=== PATIENT | female | born 2000 | race Caucasian/White ===

== ENCOUNTER 2022-07-20 10:24 | Outpatient (OUT) | payer OTHER, SELFPAY ==
[2022-07-20 10:48] VITALS: BP 127/64; PULSE 83
== END 2022-07-20 11:28 | disposition home or self-care (01) ==
LOC: FBCO 10:30 → FBC 10:36
PROVIDERS: PCP Family Medicine; Visit Provider Obstetrics & Gynecology
DX: O26.899 Other specified pregnancy related conditions, unspecified trimester (principal); R20.2 Paresthesia of skin; Z3A.00 Weeks of gestation of pregnancy not specified
CPT/HCPCS: 59025

== ENCOUNTER 2022-09-20 10:45 | Observation (INO) | payer OTHER, SELFPAY ==
[2022-09-20 10:56] VITALS: BP 113/64; PULSE 81
[2022-09-20 10:57] VITALS: TEMP 35.4
[2022-09-20 11:11] VITALS: BP 116/71; PULSE 70
[2022-09-20 11:26] VITALS: BP 123/77; PULSE 67
[2022-09-20 11:41] VITALS: BP 121/77; PULSE 75
[2022-09-20 11:50] LABS: Basophils Percent Auto 0.3 % (0.2-2.0); Eosinophils Absolute Auto 0.1 10^3/uL (0.0-0.7); Eosinophils Percent Auto 0.8 % (0.9-7.0); Hemoglobin 12.4 g/dL (12.0-16.0); Immature Granulocytes Abs Auto 0.02 10^3/uL (0.00-0.03); Immature Granulocytes Pct Auto 0.3 % (0.0-0.5); Lymphocytes Absolute Auto 2.1 10^3/uL (1.2-3.8); Lymphocytes Percent Auto 28.8 % (20.5-60.0); Mean Corpuscular HGB Conc 32.6 g/dL (29.9-35.2); Mean Corpuscular Hemoglobin 25.3 pg (26.7-34.0); Mean Corpuscular Volume 77.6 fL (81.0-99.0); Mean Platelet Volume 10.5 fL (9.5-13.5); Monocytes Absolute Auto 0.3 10^3/uL (0.3-0.8); Monocytes Percent Auto 4.3 % (1.7-12.0); Neutrophils Absolute Auto 4.7 10^3/uL (1.4-6.5); Neutrophils Percent Auto 65.5 % (43.0-75.0); Platelet Count 221 10^3/uL (150-450); Red Cell Distribution Width 13.6 % (11.0-15.0); White Blood Count 7.2 10^3/uL (4.0-11.0)
[2022-09-20 11:54] LABS: Creatinine Urine Random 45.44 mg/dL (20.00-300.00); Protein Creatinine Ratio Urine 0.13; Total Protein Urine Random <6.0 mg/dL (<=11.9)
[2022-09-20 11:59] LABS: Bilirubin Urine NEGATIVE (NEGATIVE); Blood Urine NEGATIVE (NEGATIVE); Clarity Urine CLEAR (CLEAR); Color Urine LT. YELLOW (YELLOW); Glucose Urine UA NEGATIVE (NEGATIVE); Ketones Urine NEGATIVE (NEGATIVE); Leukocyte Esterase Urine TRACE (NEGATIVE); Nitrite Urine NEGATIVE (NEGATIVE); Protein Urine NEGATIVE (NEG/TRACE); Specific Gravity Urine <=1.005 (1.005-1.025); Urobilinogen Urine 0.2 EU/dL (0.2-1.0)
[2022-09-20 12:02] LABS: Urine Microscopic Indicated YES
[2022-09-20 12:09] LABS: Alanine Aminotransferase 74 U/L (14-59); Albumin Level 2.1 g/dL (3.4-5.0); Alkaline Phosphatase 126 U/L (46-116); Anion Gap 13.8; Aspartate Amino Transferase 35 U/L (15-37); Bilirubin Total 0.6 mg/dL (0.2-1.0); Calcium 8.6 mg/dL (8.5-10.1); Carbon Dioxide 23.6 mmol/L (21.0-32.0); Chloride 102 mmol/L (98-107); Estimated GFR (African America >60 (>=60); Estimated GFR (Non-African Ame >60 (>=60); Glucose 113 mg/dL (74-106); Lactate Dehydrogenase 121 U/L (81-234); Potassium 3.4 mmol/L (3.5-5.1); Sodium 136 mmol/L (136-145); Total Protein 6.1 g/dL (6.4-8.2); Uric Acid 3.2 mg/dL (2.6-6.0)
[2022-09-20 12:10] LABS: Albumin Globulin Ratio 0.5
[2022-09-20 12:11] LABS: INR 0.93; Partial Thromboplastin Time 28.2 sec (22.3-36.2); Prothrombin Time 9.9 sec (9.0-11.6)
[2022-09-20 12:14] LABS: WBC Urine 0-2 #/HPF (NONE SEEN)
[2022-09-20 12:15] LABS: Bacteria Urine TRACE #/HPF (NONE SEEN); Cast Seen? NONE SEEN #/LPF (NONE SEEN); Crystals Seen? None Seen #/HPF (None Seen); Mucus Urine NONE SEEN (NONE SEEN); RBC Urine 0-2 #/HPF (0-2); Squamous Epithelial Cell Urine FEW #/LPF (NONE/RARE); Urine Culture Indicated NO
[2022-09-20 12:16] LABS: BUN Creatinine Ratio 6.3
== END 2022-09-20 12:40 | disposition home or self-care (01) ==
LOC: FBC 11:25
PROVIDERS: Admitting Provider Obstetrics & Gynecology; PCP Family Medicine; Visit Provider Obstetrics & Gynecology
DX: O16.3 Unspecified maternal hypertension, third trimester (principal); O26.893 Other specified pregnancy related conditions, third trimester; R51.9 Headache, unspecified; R42 Dizziness and giddiness; Z3A.33 33 weeks gestation of pregnancy
CPT/HCPCS: 36415; 59025; 80053; 81001; 82570; 83615; 84156; 84550; 85025; 85610; 85730; G0378; G0379

== ENCOUNTER 2022-09-30 17:35 | Observation (INO) | payer OTHER, SELFPAY ==
[2022-09-30] VITALS (20 sets, daily range): BP systolic 105–140; BP diastolic 67–84; PULSE 69–99; RESP 18; TEMP 36.8
[2022-09-30 18:16] LABS: Bilirubin Urine NEGATIVE (NEGATIVE); Blood Urine TRACE-I (NEGATIVE); Clarity Urine CLEAR (CLEAR); Color Urine LT. YELLOW (YELLOW); Glucose Urine UA NEGATIVE (NEGATIVE); Ketones Urine NEGATIVE (NEGATIVE); Leukocyte Esterase Urine TRACE (NEGATIVE); Nitrite Urine NEGATIVE (NEGATIVE); Protein Urine NEGATIVE (NEG/TRACE); Specific Gravity Urine <=1.005 (1.005-1.025); Urobilinogen Urine 0.2 EU/dL (0.2-1.0); pH Urine 5.5 (5.0-9.0)
[2022-09-30 18:18] LABS: Urine Microscopic Indicated YES
[2022-09-30] MEDS: 0.9 % SODIUM CHLORIDE 1,000 ML 125 ML IV (18:18)
[2022-09-30] MEDS: TERBUTALINE SULFATE 1 MG/ML VIAL 0.25 MG SUBQ ×2 (18:21→18:53)
[2022-09-30 18:31] LABS: Bacteria Urine TRACE #/HPF (NONE SEEN); Cast Seen? NONE SEEN #/LPF (NONE SEEN); Crystals Seen? None Seen #/HPF (None Seen); Mucus Urine NONE SEEN (NONE SEEN); Squamous Epithelial Cell Urine FEW #/LPF (NONE/RARE); Urine Culture Indicated YES
--- NOTE | 2022-09-30 19:35 | W.PC.ACHO ---
Registration Status: ADM CHRISTINA Primary Language: Preferred Language: Active Medications Generic Name Dose Route Start Last Admin Trade Name Freq PRN Reason Stop Dose Admin Sodium Chloride 1,000 mls @ 125 mls/hr 09/30/22 17:45 09/30/22 18:18 Sodium Chloride 0.9% 1,000 Ml IV 125 mls/hr .Q8H CONY Administration Terbutaline Sulfate 0.25 mg 09/30/22 17:45 09/30/22 18:53 Terbutaline Sulfate 1 Mg/Ml Vial SUBQ 09/30/22 20:16 0.25 mg Q30M CONY Administration IV Insertion/Site Date of IV Line Insertion [ 09/30/22 Short PIV (<1.75 in) right Hand] IV Insertion Time [Short PIV ( 18:05 <1.75 in) right Hand]
== END 2022-09-30 22:02 | disposition home or self-care (01) ==
PROVIDERS: Admitting Provider Midwife; PCP Family Medicine; Visit Provider Midwife
DX: O47.9 False labor, unspecified (principal); Z3A.00 Weeks of gestation of pregnancy not specified
CPT/HCPCS: 59025; 81001; 87086; 96372; G0378; G0379

== ENCOUNTER 2022-10-06 18:41 | Observation (INO) | payer OTHER, SELFPAY ==
[2022-10-06 18:42] VITALS: BP 139/79; PULSE 77
[2022-10-06 19:59] LABS: Bilirubin Urine NEGATIVE (NEGATIVE); Blood Urine NEGATIVE (NEGATIVE); Clarity Urine CLEAR (CLEAR); Color Urine LT. YELLOW (YELLOW); Glucose Urine UA NEGATIVE (NEGATIVE); Ketones Urine NEGATIVE (NEGATIVE); Leukocyte Esterase Urine SMALL (NEGATIVE); Nitrite Urine NEGATIVE (NEGATIVE); Protein Urine NEGATIVE (NEG/TRACE); Specific Gravity Urine 1.015 (1.005-1.025); Urobilinogen Urine 0.2 EU/dL (0.2-1.0)
[2022-10-06] MEDS: LACTATED RINGER'S SOLUTION 1,000 ML 125 ML IV (20:28)
[2022-10-06 20:29] LABS: Urine Microscopic Indicated YES
[2022-10-06 20:31] LABS: Bacteria Urine TRACE #/HPF (NONE SEEN); Mucus Urine NONE SEEN (NONE SEEN); RBC Urine 0-2 #/HPF (0-2)
[2022-10-06 20:32] LABS: Cast Seen? NONE SEEN #/LPF (NONE SEEN); Crystals Seen? None Seen #/HPF (None Seen); Squamous Epithelial Cell Urine MODERATE #/LPF (NONE/RARE); Urine Culture Indicated YES
[2022-10-06 21:07] VITALS: BP 130/76
[2022-10-06] MEDS: NIFEdipine 10 MG CAPSULE PO (21:07)
[2022-10-06 21:09] VITALS: BP 130/76; PULSE 74; RESP 16
[2022-10-06] MEDS: ACETAMINOPHEN 500 MG TABLET 1000 MG PO (21:09)
[2022-10-07] MEDS: BETAMETHASONE ACE/BETAMETHASONE SOD PHOS 30 MG/5 ML 12 MG IM (00:15)
[2022-10-07] MEDS: LACTATED RINGER'S SOLUTION 1,000 ML 1000 ML IV (00:16)
[2022-10-07 01:02] VITALS: BP 119/82
[2022-10-07] MEDS: NIFEdipine 10 MG CAPSULE PO ×3 (01:02→08:41)
[2022-10-07 01:03] VITALS: BP 119/82; PULSE 72
[2022-10-07 05:14] VITALS: BP 110/69
[2022-10-07 05:15] VITALS: BP 110/69; PULSE 64
[2022-10-07 07:27] VITALS: BP 110/71; PULSE 74
[2022-10-07] MEDS: SERTRALINE HCL 50 MG TABLET PO (08:39)
[2022-10-07] MEDS: LEVOTHYROXINE SODIUM 75 MCG TABLET 150 MCG PO (08:39)
--- NOTE | 2022-10-07 08:59 | PM.EN ---
Event Note Event Note: patient arrived yesterday after falling while holding her baby. She did not know what she hit or how she landed as she was upset and worried about falling with the baby. She came to the hospital and was treated for contractions and 4 hour NST. Doing well today, SVE unchanged from yesterday to today at fingertip. Assessment negative. LS clear x4, Heart rate NSR, abdomen gravid and soft. category I FHR tracing, patient denies contraction pain and abdominal tightening. She states she wants to go home. Rx for Procardia 10 mg 1 po q6hrs and continue routine meds. PVU and she will return tonight at 10:00 pm for her second dose of Celestone.
== END 2022-10-07 09:25 | disposition home or self-care (01) ==
LOC: FBCO 10-07 08:48 → FBC 10-07 08:49
PROVIDERS: Admitting Provider Midwife; PCP Family Medicine; Visit Provider Midwife
DX: O60.03 Preterm labor without delivery, third trimester (principal); Z3A.35 35 weeks gestation of pregnancy; Z91.81 History of falling
CPT/HCPCS: 59025; 81001; 87086; 96372; G0378; G0379; J0702

== ENCOUNTER 2022-10-07 09:54 | Outpatient (OUT) | payer OTHER, SELFPAY ==
[2022-10-07] MEDS: BETAMETHASONE ACE/BETAMETHASONE SOD PHOS 30 MG/5 ML 12 MG IM (22:25)
== END 2022-10-07 22:30 | disposition home or self-care (01) ==
PROVIDERS: PCP Family Medicine; Visit Provider Midwife
DX: O60.00 Preterm labor without delivery, unspecified trimester (principal); Z3A.00 Weeks of gestation of pregnancy not specified
CPT/HCPCS: 96372; J0702

== ENCOUNTER 2022-10-23 18:20 | Inpatient (IN) | payer OTHER, SELFPAY ==
[2022-10-23] VITALS (34 sets, daily range): BP systolic 107–163; BP diastolic 66–105; PULSE 61–88; RESP 16–18; TEMP 35.9–36.7
[2022-10-23] MEDS: 0.9 % SODIUM CHLORIDE 1,000 ML 125 ML IV (19:17)
[2022-10-23 19:18] LABS: Hematocrit 39.3 % (36.0-48.0); Hemoglobin 13.1 g/dL (12.0-16.0); Mean Corpuscular HGB Conc 33.3 g/dL (29.9-35.2); Mean Platelet Volume 11.3 fL (9.5-13.5); Platelet Count 245 10^3/uL (150-450); Red Blood Count 5.04 10^6/uL (4.20-5.40); Red Cell Distribution Width 14.3 % (11.0-15.0); White Blood Count 9.3 10^3/uL (4.0-11.0)
[2022-10-23] MEDS: 0.9 % SODIUM CHLORIDE 1,000 ML 1000 ML IV (20:10)
[2022-10-23 20:26] LABS: Amphetamine Screen Urine NEGATIVE (NEGATIVE); Barbiturates Screen Urine NEGATIVE (NEGATIVE); Benzodiazepines Screen Urine NEGATIVE (NEGATIVE); Buprenorphine Screen Urine NEGATIVE (NEGATIVE); Cannabinoid Screen Urine NEGATIVE (NEGATIVE); Cocaine Screen Urine NEGATIVE (NEGATIVE); Methadone Screen Urine NEGATIVE (NEGATIVE); Methamphetamines Screen Urine NEGATIVE (NEGATIVE); Opiate Screen Urine NEGATIVE (NEGATIVE); Oxycodone Screen Urine NEGATIVE (NEGATIVE); Phencyclidine Screen Urine NEGATIVE (NEGATIVE); Tricyclic Antidepressant Urine NEGATIVE (NEGATIVE)
[2022-10-23] MEDS: ROPIVACAINE HCL/PF 400 MG/200 ML PREMIX 6 MG EPIDURAL (20:38)
[2022-10-23 20:39] LABS: Bilirubin Urine NEGATIVE (NEGATIVE); Blood Urine NEGATIVE (NEGATIVE); Clarity Urine CLEAR (CLEAR); Color Urine LT. YELLOW (YELLOW); Glucose Urine UA NEGATIVE (NEGATIVE); Ketones Urine NEGATIVE (NEGATIVE); Leukocyte Esterase Urine MODERATE (NEGATIVE); Nitrite Urine NEGATIVE (NEGATIVE); Protein Urine NEGATIVE (NEG/TRACE); Urobilinogen Urine 0.2 EU/dL (0.2-1.0)
[2022-10-23] MEDS: FENTANYL CITRATE/PF 100 MCG/2 ML VIAL EPIDURAL ×2 (20:39)
[2022-10-23 21:08] LABS: Urine Microscopic Indicated YES
[2022-10-23 21:27] LABS: Squamous Epithelial Cell Urine MODERATE #/LPF (NONE/RARE)
[2022-10-23 21:29] LABS: Crystals Seen? None Seen #/HPF (None Seen)
[2022-10-23 21:31] LABS: Bacteria Urine NONE SEEN #/HPF (NONE SEEN); Cast Seen? NONE SEEN #/LPF (NONE SEEN); Mucus Urine NONE SEEN (NONE SEEN); RBC Urine 0-2 #/HPF (0-2)
--- NOTE | 2022-10-23 23:34 | P.OBHP_ITS ---
OB - H&P: HPI History of Present Illness Chief complaint: Cramping, Rule out Labor : 2 Para: 1 Gestational age based on last menstrual period: 36 w History of Present Dating criteria: LMP confirmed by 1st trimester US care: good care Ultrasounds: normal 1st trimester US and normal mid trimester US complications: labor complications comment: hypothyroid Medical complications OB: none Labs Blood type: A (-) negative Rubella: immune RPR/VDLR: nonreactive GBS status: negative HBsAG: negative PFSH PFSH Medical History (Updated 10/23/22 @ 23:41 by HYACINTH CABRERA APRN, DERICK) Surgical History (Updated 07/20/22 @ 10:56 by Buffy White, JOJO) Social History (Updated 07/20/22 @ 10:58 by Buffy White, JOJO) Smoking status: Never smoker Non-prescribed substance use: denies use Meds Home Medications and Allergies Home Medications Medication Instructions Recorded Confirmed Type levothyroxine 150 mcg capsule 150 mcg PO DAILY 07/20/22 10/23/22 History ondansetron HCl 4 mg tablet 4 mg PO TID-QID PRN nausea and 07/20/22 10/23/22 History vomiting prenat.vits,milka,dyy-odec-nrxrl 1 tab PO DAILY 07/20/22 10/23/22 History sertraline 50 mg tablet (Zoloft) 50 mg PO DAILY 07/20/22 10/23/22 History Allergies Allergy/AdvReac Type Severity Reaction Status Date / Time Penicillins Allergy Severe Hives Verified 07/20/22 10:52 vancomycin Allergy Severe kidney Verified 07/20/22 10:52 failure loratadine [From Claritin] Allergy Intermediate Hives Verified 07/20/22 10:52 Exam Constitutional Vital Signs, click to edit/add: Last Vital Signs Temp 96.8 F L 10/23/22 20:26 Pulse 75 10/23/22 23:29 Resp 18 10/23/22 19:31 BP 130/70 10/23/22 23:29 Documenting provider has reviewed patient's vital signs: yes Common normals: no apparent distress General appearance: cooperative and comfortable Orientation/consciousness: Yes awake, Yes oriented to person, Yes oriented to place and Yes oriented to time HENMT Common normals: normocephalic Neck & C-Spine Common normals: full ROM and no JVD Lymph Lymphatic: no lymphadenopathy noted Chest Common normals: inspection of chest normal Respiratory Common normals: normal respiratory effort and clear to auscultation bilaterally Effort & inspection: able to speak in complete sentences Cardio Common normals: regular rate, regular rhythm and no murmurs Rate: regular rate Rhythm: regular rhythm GI Common normals: Normal to inspection, nondistended, normoactive bowel sounds present Inspection: normal to inspection Auscultation: normoactive bowel sounds Palpation: soft Common normals: no CVA tenderness Back & Pelvis Common normals: no CVA tenderness Extremity Common normals: normal to inspection Neuro Common normals: oriented x3 Sensorium/orientation: awake, alert, oriented to person, oriented to place and oriented to time Speech: speech normal Psych Common normals: mental status grossly normal Attitude: calm Activity/motor behavior: appropriate eye contact Thought process: normal thought process Results Labs Labs: Short CBC 10/23/22 Range/Units 19:00 WBC 9.3 (4.0-11.0) 10^3/uL Hgb 13.1 (12.0-16.0) g/dL Hct 39.3 (36.0-48.0) % Plt Count 245 (150-450) 10^3/uL Urine 10/23/22 Range/Units 19:00 Urine Color Lt. yellow (YELLOW) Urine Clarity Clear (CLEAR) Urine pH 7.0 (5.0-9.0) Ur Specific [place] 1.010 (1.005-1.025) Urine Protein Negative (NEG/TRACE) mg/dL Urine Glucose (UA) Negative (NEGATIVE) mg/dL OB - A/P Assessment and Plan (1) Term :
[2022-10-23] MEDS: OXYTOCIN/0.9 % SODIUM CHLORIDE 20 UNITS/1,000 ML PLAST..BAG 125 UNIT IV (23:41)
[2022-10-23] MEDS: LIDOCAINE HCL 1% 200 MG/20 ML MDV INJ (23:41)
--- NOTE | 2022-10-23 23:42 | PM.OBPRCVD ---
Procedure Procedure: events: Labor Augmentation Intrapartal events: None Induction method: none Delivery augmentation: rupture of membranes and pitocin Delivery monitor: external FHT and external uterine Route of delivery: Episiotomy Description: none Laceration description: perineal - 2nd degree Delivery repair: Vicryl Estimated blood loss (mL): 200 Anesthesia type: Epidural Disposition: no change Complications: epidural not effective for pain relief Delivery date: 10/23/22 Gender: male presentation: vertex Placental delivery description: Spontaneous cord description: 3 Vessels heart rate - 1 minute: 100 bpm or Greater respiratory effort - 1 minute: Spontaneous/Strong Cry muscle tone - 1 minute: Minimal Flexion/Extension reflex response - 1 minute: Minimal Response color - 1 minute: Bluish Hands or Feet total score - 1 minute: 7 heart rate - 5 minute: 100 bpm or Greater respiratory effort - 5 minute: Spontaneous/Strong Cry muscle tone - 5 minute: Active Movement reflex response - 5 minute: Minimal Response color - 5 minute: Bluish Hands or Feet total score - 5 minute: 8
[2022-10-24] VITALS (15 sets, daily range): BP systolic 98–127; BP diastolic 56–75; PULSE 62–73; RESP 16; TEMP 35.8–37.3
[2022-10-24] MEDS: GLYCERIN/WITCH HAZEL PADS 1 PAD TOPICAL (00:16)
[2022-10-24] MEDS: IBUPROFEN 400 MG TABLET 800 MG PO ×2 (00:17→09:58)
--- NOTE | 2022-10-24 08:45 | PM.OBPN ---
OB - PN: Subj Subjective Patient comments: no complaints and pain well controlled Faber status: doing well Exam Constitutional Vital Signs, click to edit/add: Last Vital Signs Temp 96.4 F L 10/24/22 04:05 Pulse 65 10/24/22 04:05 Resp 16 10/24/22 03:55 BP 116/68 10/24/22 04:05 O2 Del Method Room Air 10/24/22 03:55 Documenting provider has reviewed patient's vital signs: yes Common normals: no apparent distress Respiratory Common normals: normal respiratory effort and clear to auscultation bilaterally Cardio Common normals: regular rate and regular rhythm GI Common normals: Normal to inspection, nondistended, normoactive bowel sounds present Extremity Common normals: no calf tenderness Results Labs Labs: Short CBC 10/23/22 Range/Units 19:00 WBC 9.3 (4.0-11.0) 10^3/uL Hgb 13.1 (12.0-16.0) g/dL Hct 39.3 (36.0-48.0) % Plt Count 245 (150-450) 10^3/uL Urine 10/23/22 Range/Units 19:00 Urine Color Lt. yellow (YELLOW) Urine Clarity Clear (CLEAR) Urine pH 7.0 (5.0-9.0) Ur Specific [place] 1.010 (1.005-1.025) Urine Protein Negative (NEG/TRACE) mg/dL Urine Glucose (UA) Negative (NEGATIVE) mg/dL OB - PN: A/P Assessment and Plan (1) Term : Plan - Vaginal Delivery day: 1 Plan: routine care, discharge home and other (on friday10/28/22 with megan emanuel) Time Spent with Patient Time: Total time spent is greater than 50% in coordination of care (as documented) at patient's floor/unit and/or counseling patient: Total time spent with greater than 50% in coordination of care (as documented) at patient's floor/unit and/or counseling patient: 25 - 35 minutes
[2022-10-24] MEDS: RHO(D) IMMUNE GLOBULIN 1,500 UNIT SYRINGE 1500 UNIT IM (11:18)
== END 2022-10-24 11:30 | disposition home or self-care (01) | DRG 560 ==
LOC: FBCO 18:30 → FBC 18:30
PROVIDERS: Admitting Provider Midwife; PCP Family Medicine; Visit Provider Midwife
DX: O99.284 Endocrine, nutritional and metabolic diseases complicating childbirth (principal); O70.1 Second degree perineal laceration during delivery; Z3A.38 38 weeks gestation of pregnancy; E03.1 Congenital hypothyroidism without goiter; Z37.0 Single live birth; Z79.890 Hormone replacement therapy; Z79.899 Other long term (current) drug therapy; Z88.0 Allergy status to penicillin; Z88.1 Allergy status to other antibiotic agents; Z88.8 Allergy status to other drugs, medicaments and biological substances
CPT/HCPCS: 36415; 59050; 59410; 80307; 81001; 85027; 85461; 86900; 86901; 96372; 96374; J2790

== ENCOUNTER 2024-10-22 18:31 | Emergency (ER) | payer OTHER, SELFPAY ==
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
[2024-10-22 18:41] VITALS: BP 138/74; PULSE 62; TEMP 37; O2SAT 100; BMI 49.9
--- OUTSIDE RECORDS SUMMARY | 2024-10-22 19:26 | XMS_ITS | Encounter Summary ---
Author Organization [facility] Address [address] [place] [address] Care Team Providers Care Plug Drill Operator Name Role Phone Viji Vogt MD Primary Care Provider [phone] Rena Borges AUTOMOTIVE MACHINIST Unavailable [phone] Bree Bryant RN Unavailable [phone] Geneva Abdi INDUSTRIAL DESIGN ENGINEER Unavailable Viji Vogt MD Unavailable Mariann Loving AUTOMOTIVE MACHINIST Unavailable Thalia-Glory Acosta WATERWORKS CHIEF ENGINEER-NAPPER RUNNER Unavailable Viji Vogt MD Unavailable Encounter Details Date Type Department Care Team (Late st Contact Info) Description 08/22/2022 Abstract AHMETRaulito Jaimes OBFÁTIMAN [address] [place] [address] Elena Gonzalez, MILAM [address] [place], [place] [id number] Social History Tobacco Use Types Packs/Day Years Used Date Smoking Tobacco: Never Smokeless Tobacco: Never Alcohol Use Standard Drinks/Week Comments Never 0 (1 standard drink = 0.6 oz pur e alcohol) caffeine: pop 2 cans/day Comments Yes Sex and Gender Information Value Date Recorded Sex Assigned at Female 06/19/2022 12:13 PM EDT Legal Sex Female 6:48 PM EDT Gender Identity Female 06/19/2022 12:13 PM EDT Sexual Orientation Straight 06/19/2022 12 :13 PM EDT Occupation Industry 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 Date 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 No / Unsure 08/14/2022 10:38 PM EDT documented as of this encounter Plan of Treatment Upcoming Encounters Date Type Department Care Team (Late st Contact Info) Description 11/16/2024 11:30 AM EDT Office Visit [facility] [place] [facility] 112 [facility] [address] [place] [address] Glory Mccormick, WATERWORKS CHIEF ENGINEER-NAPPER RUNNER 112 [facility] [address] [place] [address] documented as of this encounter Visit Diagnoses Not on filedocumented in this encounter Care Teams Plug Drill Operator Relationship Specialty Start Date End Date Viji Vogt MD [address] [place] [address] PCP - General Family Medicine 07/12/22 Rena Borges NP [address] [place] [address] PCP - [facility] 08/10/22 Viji Vogt MD [address] [place] [address] PCP - [facility] 05/12/23 Mariann Loving NP PCP - [facility] 11/11/2302/09 Viji Vogt MD [address] [place] [address] PCP - [facility] 02/11/24 Bree Bryant, RN [address] [place] [address] Registered Nurse Family Medicine 01/29/23 01/29/23 Geneva Abdi, DEE [address] [place] [address] Graining Press Operator Family Medicine 01/29/23 02/05/23 Glory Mccormick, WATERWORKS CHIEF ENGINEER-NAPPER RUNNER [address] [facility] [address] [place] [address] Nurse Practitioner Psychiatry 02/27/24 documented as of this encounter
--- OUTSIDE RECORDS SUMMARY | 2024-10-22 19:26 | XMS_ITS | Encounter Summary ---
Author Organization [facility] Address [address] [place] [address] Care Team Providers Care Anchor Tacker Name Role Phone Viji Vogt MD Primary Care Provider [phone] Glory Mccormick BRAN MIXER-ALUMINUM HYDROXIDE PROCESS OPERATOR Unavailable Viji Vogt MD Unavailable Encounter Details Date Type Department Care Team (Late st Contact Info) Description 10/22/2024 Bamboo flowsheet [facility] Family Medicine [address] [place] [address] Sasha Frye NP [address] [place] [address] Social History Tobacco Use Types Packs/Day Years [...] week 11/07/2023 How often do you attend [facility] or rastafari services? More than 4 times per year 11/07/2023 Do you belong to any clubs o r organizations such as sikh groups, unions, fraternal or athletic groups, or [...] Recorded Patient Health Questionnaire-2 Score 1 04/27/2024 [facility] - Occupational [...] things needed for daily living? No 11/07/2023 [place] Depression Scale Answer Date Recorded [place] Depression Scale Total 20 01/29/2023 The thought [...] any time in the past 12 m ont, were you homeless or living in a intermediate (including now)? No 11/07/2023 Education Answer Date [...] on file documented as of this encounter Plan of Treatment Upcoming Encounters Date Type Department Care Team (Late st Contact Info) Description 11/16/2024 11:30 AM EDT Office Visit [facility] [place] [facility] [address] [facility] [address] [place] [address] Glory Mccormick, BRAN MIXER-ALUMINUM HYDROXIDE PROCESS OPERATOR [address] [facility] [address] [place] [address] documented as of this encounter Visit Diagnoses Not on filedocumented in this encounter Additional Health Concerns Assessment Noted Time PHQ-9 Depression Total Score: 13 04/27/ 025 3:28 PM EDT documented as of this encounter Care Teams Anchor Tacker Relationship Specialty Start Date End Date Viji Vogt MD [address] [place] [address] PCP - General Family Medicine 07/12/22 Viji Vogt MD [address] [place] [address] PCP - [facility] 02/11/24 Glory Mccormick, BRAN MIXER-ALUMINUM HYDROXIDE PROCESS OPERATOR [address] [place] [address] [place] [address] Nurse Practitioner Psychiatry 02/27/24 documented as of this encounter
--- OUTSIDE RECORDS SUMMARY | 2024-10-22 19:26 | XMS_ITS | Encounter Summary ---
Author Organization [facility] Address [address] [place] [address] Care Team Providers Care Bi Architect Name Role Phone Viji Vogt MD Primary Care Provider [phone] Glory Mccormick FERTILIZER SUPERVISOR-MICROPHONE BOOM OPERATOR Unavailable Viji Vogt MD Unavailable Encounter Details Date Type Department Care Team (Latest Contact Info) Description 10/22/2024 Travel Social History Tobacco Use Types Packs/Day Years [...] week 11/07/2023 How often do you attend chur ch or jewish services? More than 4 times per year 11/07/2023 Do you belong to any clubs o r organizations such as scientology groups, unions, fraternal or athletic groups, or [...] Recorded Patient Health Questionnaire-2 Score 1 04/27/2024 [facility] - Occupational Stress [...] things needed for daily living? No 11/07/2023 Avon Depression Scale Answer Date Recorded [place] Depression Scale Total 20 01/29/2023 The thought [...] [facility] the [facility] were you homeless or living in a fci (including now)? No 11/07/2023 Education Answer Date [...] 11/16/2024 11:30 AM EDT Office Visit [facility] 112 [facility] 160 [place] [address] Glory Mccormick APRN-MICROPHONE BOOM OPERATOR 112 [facility] 160 [place] [address] documented as of this encounter Visit Diagnoses Not on filedocumented in this encounter Additional Health Concerns Assessment Noted Time PHQ-9 Depression Total Score: 13 04/27/ 025 3:28 PM EDT documented as of this encounter Care Teams Bi Architect Relationship Specialty Start Date End Date Viji Vogt MD [address] [place] [address] PCP - General Family Medicine 07/12/22 Viji Vogt MD [address] [place] [address] PCP - [facility] 02/11/24 Glory Mccormick APRN-MICROPHONE BOOM OPERATOR 112 [facility] 160 [place] [address] Nurse Practitioner Psychiatry 02/27/24 documented as of this encounter
--- OUTSIDE RECORDS SUMMARY | 2024-10-22 19:26 | XMS_ITS | Encounter Summary ---
Author Organization [facility] Address [address] [place] [address] Care Team Providers Care Insulation Extruder Operator Name Role Phone Viji Vogt MD Primary Care Provider [phone] Rena Borges SENIOR INTERACTION DESIGNER Unavailable [phone] Bree Bryant RN Unavailable [phone] Geneva Abdi SHIPPING/RECEIVING CLERK Unavailable Viji Vogt MD Unavailable Mariann Loving SENIOR INTERACTION DESIGNER Unavailable Thalia-Glory Acosta GRAPHIC ARTS TECHNICIAN-INSPECTOR HANDBAG FRAMES Unavailable Viji Vogt MD Unavailable Encounter Details Date Type Department Care Team (Late st Contact Info) Description 07/19/2022 Abstract [facility] [address] [place] [address] Elena Gonzalez, DERICK [address] [place], [place] [address] Social History Tobacco Use Types Packs/Day Years Used Date Smoking Tobacco: Never Assessed Comments Yes Sex and Gender Information Value Date Recorded Sex Assigned at Female 06/19/2022 12:13 PM EDT Legal Sex Female 6:48 PM EDT Gender Identity Female 06/19/2022 12:13 PM EDT Sexual Orientation Straight 06/19/2022 12 :13 PM EDT documented as of this encounter Plan of Treatment Upcoming Encounters Date Type Department Care Team (Late st Contact Info) Description 11/16/2024 11:30 AM EDT Office Visit [facility] 112 [facility] 160 [place] [address] Glory Mccormick, GRAPHIC ARTS TECHNICIAN-INSPECTOR HANDBAG FRAMES 112 [facility] 160 [place] [address] documented as of this encounter Visit Diagnoses Not on filedocumented in this encounter Care Teams Insulation Extruder Operator Relationship Specialty Start Date End Date Viji Vogt MD 14[address] [facility] [place] [address] PCP - General Family Medicine 07/12/22 Rena Borges, SENIOR INTERACTION DESIGNER [address] [place] [address] PCP - [facility] 08/10/22 Viji Vogt MD [address] [place] [address] PCP - [facility] 05/12/23 Mariann Loving NP PCP - [facility] 11/11/2302/09 Viji Vogt MD [address] [place] [address] PCP - [facility] 02/11/24 Bree Bryant, JOJO [address] [facility] [place] [address] Registered Nurse Family Medicine 01/29/23 01/29/23 Geneva Abdi, SHIPPING/RECEIVING CLERK [address] [place] [address] Firearms Specialist Family Medicine 01/29/23 02/05/23 Glory Mccormick, GRAPHIC ARTS TECHNICIAN-INSPECTOR HANDBAG FRAMES 112 [place] [address] Nurse Practitioner Psychiatry 02/27/24 documented as of this encounter
--- OUTSIDE RECORDS SUMMARY | 2024-10-22 19:26 | XMS_ITS | Encounter Summary ---
Author Organization [facility] Address [address] [place] [address] Care Team Providers Care Onsite Health Coach Name Role Phone Viji Vogt MD Primary Care Provider [phone] Rena Borges ESTHETICIAN/OWNER Unavailable [phone] Bree Bryant RN Unavailable [phone] Geneva Abdi J2EE APPLICATION DEVELOPER Unavailable Viji Vogt MD Unavailable Mariann Loving ESTHETICIAN/OWNER Unavailable Thalia-Glory Acosta SUPERVISOR INSPECTION DEPARTMENT-MARKETING ASSISTANT MANAGER Unavailable Viji Vogt MD Unavailable Encounter Details Date Type Department Care Team (Late st Contact Info) Description 09/10/2022 [facility] Medicine [address] [place] [address] Viji Vogt MD [address] [place] [address] Social History Tobacco Use Types [...] Industry 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 No / Unsure 09/11/2022 1:45 PM EDT documented as of this encounter Plan of Treatment Upcoming Encounters Date Type Department Care Team (Late st Contact Info) Description 11/16/2024 11:30 AM EDT [facility] Visit [facility] 112 [facility] 160 [place] [address] Glory Mccormick, SUPERVISOR INSPECTION DEPARTMENT-MARKETING ASSISTANT MANAGER 112 [facility] 160 [place] [address] documented as of this encounter Visit Diagnoses Not on filedocumented in this encounter Care Teams Onsite Health Coach Relationship Specialty Start Date End Date Viji Vogt MD [address] [place] [address] PCP - General Family Medicine 07/12/22 Rena Borges NP [facility] [place] [address] PCP - [facility] 08/10/22 Viji Vogt MD [address] [place] [address] PCP - [facility] 05/12/23 Mariann Loving NP PCP - [facility] 11/11/2302/09 Viji Vogt MD [address] [place], [place] [address] PCP - [facility] 02/11/24 Bree Bryant, RN [address] [place], [place] [address] Registered Nurse Family Medicine 01/29/23 01/29/23 Geneva Abdi, DEE [address] [place] [address] Surgical Device Sales Representative Family Medicine 01/29/23 02/05/23 Glory Mccormick, SUPERVISOR INSPECTION DEPARTMENT-MARKETING ASSISTANT MANAGER 112 [facility] 160 [place] [address] Nurse Practitioner Psychiatry 02/27/24 documented as of this encounter
--- OUTSIDE RECORDS SUMMARY | 2024-10-22 19:26 | XMS_ITS | Encounter Summary ---
Author Organization [facility] Address [address] [place] [address] Care Team Providers Care Conveyor Belt Repairer Name Role Phone Viji Vogt MD Primary Care Provider [phone] Rena Borges WATERFRONT DIRECTOR Unavailable [phone] Bree Bryant RN Unavailable [phone] Geneva Abdi HEALTH TECHNICIAN HEARING Unavailable Viji Vogt MD Unavailable Mariann Loving WATERFRONT DIRECTOR Unavailable Thalia-Glory Acosta DOCUMENTATION ANALYST-FEATHER BONER Unavailable Viji Vogt MD Unavailable Reason for Visit * Reason Comments Med Refill Encounter Details Date Type Department Care Team (Late st Contact Info) Description 09/12/2022 Refill [facility] Family Medicine [address] [place] [address] Viji Vogt MD [address] [place], [place] [address] Other specified hypothyroidism (Primary Dx) Social History Tobacco Use Types [...] Industry 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 No / Unsure 09/11/2022 1:45 PM EDT documented as of this encounter Miscellaneous Notes * Telephone Encounter - Viji Vogt MD - 09/12/2022 10:29 AM EDT Approvals with refills documented in this encounter Plan of Treatment Upcoming Encounters Date Type Department Care Team (Late st Contact Info) Description 11/16/2024 11:30 AM EDT Office Visit [facility] 112 [facility] 160 [place] [address] Glory Mccormick APRN-FEATHER BONER 112 [facility] 160 [place] [address] documented as of this encounter Visit Diagnoses Diagnosis Other specified hypothyroidism- Primary documented in this encounter Care Teams Conveyor Belt Repairer Relationship Specialty Start Date End Date Viji Vogt MD [address] [place] [address] PCP - General Family Medicine 07/12/22 Rena Borges NP [address] [place] [address] [facility]CP - [facility] 08/10/22 Viji Vogt MD [address] [place] [address] PCP - [facility] 05/12/23 Mariann Loving WATERFRONT DIRECTOR PCP - [facility] 11/11/2302/09 Viji Vogt MD [address] [place], [place] [address] PCP - [facility] 02/11/24 Bree Bryant, JOJO [address] [facility] [place], [place] [id number] Registered Nurse Family Medicine 01/29/23 01/29/23 Geneva Abdi, HEALTH TECHNICIAN HEARING [address] [place] [address] Family Services Manager Family Medicine 01/29/23 02/05/23 Glory Mccormick, DOCUMENTATION ANALYST-FEATHER BONER [address] [id number] Nurse Practitioner Psychiatry 02/27/24 documented as of this encounter
--- OUTSIDE RECORDS SUMMARY | 2024-10-22 19:26 | XMS_ITS | Encounter Summary ---
Author Organization [facility] Address [address] [place] [address] Care Team Providers Care Bag Sorter Name Role Phone Viji Vogt MD Primary Care Provider [phone] Glory Mccormick APRN-LANDSCAPE TECHNICIAN Unavailable Viji Vogt MD Unavailable Encounter Details Date Type Department Care Team (Late st Contact Info) Description 10/22/2024 Telephone [facility] [place] [facility] [address] [place] [address] Viji Vogt MD [address] [place] [address] Social History Tobacco Use Types [...] week 11/07/2023 How often do you attend [facility] or congregation services? More than 4 times per year 11/07/2023 Do you belong to any clubs o r organizations such as moravian groups, unions, fraternal or athletic groups, or [...] Recorded Patient Health Questionnaire-2 Score 1 04/27/2024 [facility] - Occupational Stress Questionnaire Answer Date Recorded [...] things needed for daily living? No 11/07/2023 [place] Depression Scale Answer Date Recorded [place] Depression Scale Total 20 01/29/2023 The thought [...] were you homeless or living in a halfway (including now)? No 11/07/2023 Education Answer Date [...] on file documented as of this encounter Miscellaneous Notes * Telephone Encounter - Zonia Bautista MA - 10/22/2024 3:51 PM EDT Left a detailed message to get that at the ER since no pharmacies carry this. * Telephone Encounter - Fariba King - 10/22/2024 2:53 PM EDT Hi, this is the [facility] pharmacy in [place]. We received a prescription for Etta De La Cruz data 1 for the hyper rab babies immune globulin. It looks like something that she is going to want to receive at the hospital, just give us a call back if that is so or send it to the right office. If it was wrongly sent to us. Our number is [phone]. Thank you. documented in this encounter Plan of Treatment Upcoming Encounters Date Type Department Care Team (Late st Contact Info) Description 11/16/2024 11:30 AM EDT Office Visit [facility] [address] [facility] 160 [place] [address] Glory Mccormick, ENGINE WIPER-LANDSCAPE TECHNICIAN [address] [facility] 160 [place] [address] documented as of this encounter Visit Diagnoses Not on filedocumented in this encounter Additional Health Concerns Assessment Noted Time PHQ-9 Depression Total Score: 13 025 3:28 PM EDT documented as of this encounter Care Teams Bag Sorter Relationship Specialty Start Date End Date Viji Vogt MD [address] [place], [place] [address] PCP - General Family Medicine 07/12/22 Viji Vogt MD [address] [place] [address] PCP - [facility] 02/11/24 Glory Mccormick, ENGINE WIPER-LANDSCAPE TECHNICIAN [address] [facility] 160 [place] [address] Nurse Practitioner Psychiatry 02/27/24 documented as of this encounter
--- OUTSIDE RECORDS SUMMARY | 2024-10-22 19:26 | XMS_ITS | Encounter Summary ---
Author Organization [facility] Address [address] [place] [address] Care Team Providers Care Db2 Dba Name Role Phone Viji Vogt MD Primary Care Provider [phone] Rena Borges SURGICAL GARMENT ASSEMBLER Unavailable [phone] Bree Bryant RN Unavailable [phone] Geneva Abdi PASTEURIZING SUPERVISOR Unavailable Viji Vogt MD Unavailable Mariann Loving SURGICAL GARMENT ASSEMBLER Unavailable Thalia-Glory Acosta BULL CHAIN OPERATOR-SANDING LINE OPERATOR Unavailable Viji Vogt MD Unavailable Encounter Details Date Type Department Care Team (Late st Contact Info) Description 09/17/2022 Abstract [facility] Jaimes [facility]TIM[facility] [address] [place] [address] Elena Gonzalez, MILAM [address] [place], [place] [id number] Social History Tobacco Use Types Packs/Day Years [...] Industry 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 No / Unsure 09/17/2022 2:50 PM EDT documented as of this encounter Plan of Treatment Upcoming Encounters Date Type Department Care Team (Late st Contact Info) Description 11/16/2024 11:30 AM EDT Office Visit [facility] 112 [facility] 160 [place] [address] Glory Mccormick, BULL CHAIN OPERATOR-SANDING LINE OPERATOR 112 [facility] 160 [place] [address] documented as of this encounter Visit Diagnoses Not on filedocumented in this encounter Care Teams Db2 Dba Relationship Specialty Start Date End Date Viji Vogt MD [address] [place] [address] PCP - General Family Medicine 07/12/22 Rena Borges NP [address] [place] [address] PCP - [facility] 08/10/22 Viji Vogt MD [address] [place] [address] PCP - [facility] 05/12/23 Mariann Loving NP PCP - [facility] 11/11/2302/09 Viji Vogt MD [address] [place] [address] PCP - [facility] 02/11/24 Bree Bryant, RN [address] [place] [address] Registered Nurse Family Medicine 01/29/23 01/29/23 Geneva Abdi, DEE [address] [place] [address] Fbi Field Agent Family Medicine 01/29/23 02/05/23 Glory Mccormick, BULL CHAIN OPERATOR-SANDING LINE OPERATOR 112 [facility] 160 [place] [address] Nurse Practitioner Psychiatry 02/27/24 documented as of this encounter
--- OUTSIDE RECORDS SUMMARY | 2024-10-22 19:26 | XMS_ITS | Encounter Summary ---
Author Organization [facility] Address [address] [place] [address] Care Team Providers Care Edge Burnisher Name Role Phone Viji Vogt MD Primary Care Provider [phone] Rena Borges FASHION DESIGN PROFESSOR Unavailable [phone] Bree Bryant RN Unavailable [phone] Geneva Abdi AIRCRAFT AIR CONDITIONING MECHANIC Unavailable Viji Vogt MD Unavailable Mariann Loving FASHION DESIGN PROFESSOR Unavailable Thalia-Glory Acosta GORING CUTTER-JUDGE Unavailable Viji Vogt MD Unavailable Encounter Details Date Type Department Care Team (Late st Contact Info) Description 07/15/2022 Abstract [facility] [address] [place] [address] Elena Gonzalez, DERICK [address] [place], [place] [address] Social History Tobacco Use Types Packs/Day Years [...] Office Visit [facility] 112 [facility] 160 [place] [address] Glory Mccormick, GORING CUTTER-JUDGE 112 [facility] 160 [place] [address] documented as of this encounter Visit Diagnoses Not on filedocumented in this encounter Care Teams Edge Burnisher Relationship Specialty Start Date End Date Viji Vogt MD 1479 [facility] [place] [address] PCP - General Family Medicine 07/12/22 Rena Borges, FASHION DESIGN PROFESSOR [address] [place] [address] PCP - [facility] 08/10/22 Viji Vogt MD [address] [place] [address] PCP - [facility] 05/12/23 Mariann Loving NP PCP - [facility] 11/11/2302/09 Viji Vogt MD [address] [place] [address] PCP - [facility] 02/11/24 Bree Bryant, JOJO 4[address] [facility] [place] [address] Registered Nurse Family Medicine 01/29/23 01/29/23 Geneva Abdi, AIRCRAFT AIR CONDITIONING MECHANIC [address] [place] [address] Welding Lead Burner Family Medicine 01/29/23 02/05/23 Glory Mccormick, GORING CUTTER-JUDGE [address] [place] [address] Nurse Practitioner Psychiatry 02/27/24 documented as of this encounter
--- OUTSIDE RECORDS SUMMARY | 2024-10-22 19:26 | XMS_ITS | Encounter Summary ---
Author Organization [facility] Address [address] [place] [address] Care Team Providers Care Casting Director Name Role Phone Viji Vogt MD Primary Care Provider [phone] Rena Borges CONVEYOR MONITOR Unavailable [phone] Bree Bryant RN Unavailable [phone] Geneva Abdi AIR AND HYDRONIC BALANCING TECHNICIAN Unavailable Viji Vogt MD Unavailable Mariann Loving CONVEYOR MONITOR Unavailable Thalia-Glory Acosta PRODUCTION CONTROL SPECIALIST-DIRECT CARE SPECIALIST Unavailable Viji Vogt MD Unavailable Encounter Details Date Type Department Care Team (Late st Contact Info) Description 09/13/2022 Abstract [facility] Family Medicine [address] [place] [address] Viji Vogt MD [address] [place] [address] Social History Tobacco Use Types [...] Industry 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 Date 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 on [...] Visit [facility] 112 [facility] 160 [place] [address] Glory Mccormick, PRODUCTION CONTROL SPECIALIST-DIRECT CARE SPECIALIST 112 [facility] 160 [place] [address] documented as of this encounter Visit Diagnoses Not on filedocumented in this encounter Care Teams Casting Director Relationship Specialty Start Date End Date Viji Vogt MD [address] [place] [address] PCP - General Family Medicine 07/12/22 Rena Borges NP [facility]0 [place] [address] PCP - [facility] 08/10/22 Viji Vogt MD [address] [place] [address] PCP - [facility] 05/12/23 Mariann Loving NP PCP - [facility] 11/11/2302/09 Viji Vogt MD [address] [place], [place] [address] PCP - [facility] 02/11/24 Bree Bryant, RN [address] [place], [place] [address] Registered Nurse Family Medicine 01/29/23 01/29/23 Geneva Abdi, DEE [address] [place] [address] Clerk Checker Family Medicine 01/29/23 02/05/23 Glory Mccormick, PRODUCTION CONTROL SPECIALIST-DIRECT CARE SPECIALIST 112 [facility] 160 [place] [address] Nurse Practitioner Psychiatry 02/27/24 documented as of this encounter
--- OUTSIDE RECORDS SUMMARY | 2024-10-22 19:26 | XMS_ITS | Clinical Summary ---
Author Organization [facility] Address [address] [place] [address] Care Team Providers Care Drug Room Clerk Name Role Phone Viji Vogt MD Primary Care Provider [phone] Glory Mccormick CORK COMPOUNDER-SHEET METAL LAY OUT WORKER Unavailable Viji Vogt MD Unavailable Allergies Active Allergy Reactions Criticality Noted Date Comments Amoxicillin GI intolerance 07/11/2022 Citalopram Other 02/26/2023 Lightheadedness felt like on a rollercoaster Cetirizine Hives 07/11/2022 Loratadine Hives 07/11/2022 Vancomycin 07/15/2022 H/X Kidney Toxicity Medications hydrOXYzine pamoate (Vistaril) 25 MG capsuleIndicatio ns:SUKHWINDER (generalized anxiety disorder) Take 1 capsule (25 mg) by mouth every 8 (eight) hours if needed for anxiety 30 capsule 1 024 Active Vit-Fe Fumarate-FA ( Vitamins) 28-0.8 MG tabletIndication s:Encounter for preconception consultation Take 1 tablet by mouth Daily 30 tablet 11 025 2025 Active Additional Information Patient not taking.Reported on 10/22/2024 sertraline (Zoloft) 100 MG tabletIndication s:SUKHWINDER (generalized anxiety disorder) Take 1.5 tablets (150 mg) by mouth Daily 45 tablet 2 025 Active levothyroxine (Synthroid, Levoxyl) 175 MCG tabletIndication s:Hypothyroidism , unspecified type Take 1 tablet (175 mcg) by mouth in the morning. Take before meals. 90 tablet 3 025 2025 Active rabies immune globulin (HypeRAB) 300 UNIT/2ML injectionIndicat ions:Cat bite, initial encounter Inject 18.5 mL (2,775 Units) into the shoulder, thigh, or buttocks 1 (one) time for 1 dose Administer infiltration around bite, the rest administer IM. 20 mL 025 2024 Active Rabies Virus Vaccine, HDC reconstituted suspensionIndica tions:Cat bite, initial encounter Inject 1 mL into the shoulder, thigh, or buttocks See administration instructions Administer day 0, 3, 7, and 14. 1 mL 3 Active doxycycline (Vibramycin) 100 MG capsuleIndicatio ns:Cat bite, initial encounter Take 1 capsule (100 mg) by mouth in the morning and 1 capsule (100 mg) before bedtime. Do all this for 7 days. Take with at least 8 ounces (large glass) of water, do not lie down for 30 minutes after. 14 capsule 025 2024 Active Brexpiprazole (Rexulti) 2 MG tabletIndication s:Bipolar 1 disorder (HCC) Take 2 mg by mouth Daily 30 tablet 2 025 2024 Discontinued levothyroxine (Synthroid, Levoxyl) 175 MCG tabletIndication s:Hypothyroidism , unspecified type TAKE 1 TABLET BY MOUTH IN THE MORNING BEFORE A MEAL 30 tablet 025 2024 Discontinued(R eorder) Active Problems Problem Noted Date Diagnosed Date Anxiety 10/04/2024 Depression 10/04/2024 SUKHWINDER (generalized anxiety disorder) 07/28/2023 Body mass index (BMI) 40.0-44.9, adult Bipolar 1 disorder 07/01/2023 Chronic midline low back pain without sciatica 0 05/05/2023 Acquired hypothyroidism 04/16/2023 Assessment & Plan (10/04/2024 3:05 PM EDT): Alpha 0-thalassemia ([facility]) 04/16/2023 Migraine without aura and wi thout status migrainosus, not intractable 04/16/2023 Assessment & Plan (10/04/2024 3:05 PM EDT): Polycystic ovarian syndrome 04/16/2023 PTSD (post-traumatic stress disorder) 11/12/2022 Assessment & Plan (10/04/2024 3:05 PM EDT): Subchorionic hematoma in second trimester ([facility]-H CC) 07/15/2022 History of pre-eclampsia in prior , currently in second trimester ([facility]) 06/20/2022 JOHN (acute kidney injury) 11/30/2021 Iron deficiency anemia 11/30/2021 Encounters Date Type Department Care Team Description 10/22/2024 2:00 PM EDT Office Visit [facility] [address] [facility] [place] [phone] Sasha Frye NP Cat bite, initial encounter (Primary Dx) 10/22/2024 Telephone [place] [address] [facility] [place] [phone] Viji Vogt MD 10/22/2024 Bamboo flowsheet [place] [address] [facility] [place] [phone] Sasha Frye NP 10/22/2024 Travel 10/05/2024 Results Follow-Up [place] [address] [facility] [place] [phone] Viji Vogt MD TSH W/REFLEX TO FT4, Comprehensive metabolic panel, CBC and differential, T4, free 10/04/2024 2:00 PM EDT Office Visit [place] [address] [facility] [place] [phone] Viij Vogt MD Pedal edema (Primary Dx); PTSD (post-traumatic stress disorder) ; Acquired hypothyroidism ; Migraine without aura and without status migrainosus, not intractable ; Hypothyroidism, unspecified type 10/04/2024 Bamboo flowsheet [place] [address] [facility] [place] [phone] Viji Vogt MD 10/04/2024 Travel 09/21/2024 Refill [facility] [address] [facility] [place] [phone] Viji Vogt MD Hypothyroidism, unspecified type 07/29/2024 11:00 AM EDT Office Visit [facility] [address] [place] [address] [place] [phone] Glory Mccormick, CORK COMPOUNDER-SHEET METAL LAY OUT WORKER Bipolar 1 disorder (HCC); SUKHWINDER (generalized anxiety disorder) 07/29/2024 Bamboo flowsheet [facility] [address] [place] [address] [place] [phone] Glory Mccormick, CORK COMPOUNDER-SHEET METAL LAY OUT WORKER 07/29/2024 Travel from Last 3 Months Immunizations Immunization Administration Dates Next Due DTaP 10/26/2003 DTaP, Unspecified 08/29/1999,1998,06/28/18 99,1998 HPV, Quadrivalent 12/18/2012,09/16/2012,10/17/19 11 Hep A, ped/adol, 2 dose 08/09/2014,09/16/2012 Hep B, Adolescent or Pediatric 1998 HiB, unspecified 08/29/1999,1998 Hib / Hep B 1998,1998 IPV 10/26/2003,1998,1998 MMR 10/26/2003,03/09/1999 Meningococcal MCV4O 08/09/2014 Meningococcal MCV4P 09/16/2012 OPV 03/09/1999 Rho(D)-IG 06/20/2022,09/08/2021 Tdap 09/06/2021,10/16/2010 Varicella 03/09/1999 Family History Medical History Relation Name Comments Alcohol abuse Brother Winston S Depression Brother Winston S Drug abuse Brother Winston S Learning disabilities Brother Winston S Mental illness Brother Winston S Schizophrenia Brother Winston S Alcohol abuse Father Winston Learning disabilities Father Winston COPD Father's Brother 1 Drug abuse Father's Brother 1 Kidney disease Father's Brother 1 Mental illness Father's Brother 1 1 uncle committed suicide Accidental Father's Brother 2 Gustavo Cancer Maternal Grandfather Gregorio Lung cancer Maternal Grandfather Gregorio Vision loss Maternal Grandfather Gregorio Arthritis Maternal Grandmother Mony COPD Maternal Grandmother Mony Cancer Maternal Grandmother Mony Lung cancer Maternal Grandmother Mony Miscarriages / Stillbirths Maternal Grandmother Mony Alcohol abuse Mother Penny Anxiety disorder Mother Penny Depression Mother Penny Drug abuse Mother Penny Mental illness Mother Penny Miscarriages / Stillbirths Mother Penny Vision loss Mother Penny Alcohol abuse Mother's Sister 1 Oly Bipolar disorder Mother's Sister 1 Oly Drug abuse Mother's Sister 1 Oly heroin use Heart disease Mother's Sister 1 Oly Schizophrenia Mother's Sister 1 Oly Alcohol abuse Mother's Sister 2 Argelia Depression Mother's Sister 2 Argelia Drug abuse Mother's Sister 2 [place]gelia Mental illness Mother's Sister 2 Argelia COPD Paternal Grandfather J Carlos Cancer Paternal Grandfather J Carlos Lung cancer Paternal Grandfather J Carlos Lymphoma Paternal Grandfather J Carlos Cancer Paternal Grandmother Rena Hypertension Paternal Grandmother Rena Skin cancer Paternal Grandmother Rena Relation Name Status Comments Brother Winston S Father Winston Alive Father's Brother 1 Father's Brother 2 Gustavo Maternal Grandfather Gregorio Maternal Grandmother Mony Mother Penny Alive Mother's Sister 1 Oly Mother's Sister 2 Argelia Paternal Grandfather J Carlos Paternal Grandmother Rena Son Alive Social History Tobacco Use Types Packs/Day Years Used Date Smoking Tobacco: Never Smokeless Tobacco: Never Tobacco Cessation:Counseling Given: Not Answered Alcohol Use Standard Drinks/Week Comments Never 0 [...] week 11/07/2023 How often do you attend [facility] or muslim services? More than 4 times per year 11/07/2023 Do you belong to any clubs o r organizations such as quaker groups, unions, fraternal or athletic groups, or [...] Recorded Patient Health Questionnaire-2 Score 1 04/27/2024 [facility] - [...] things needed for daily living? No 11/07/2023 Saucier Depression Scale Answer Date Recorded [place] Depression Scale Total 20 01/29/2023 The thought [...] were you homeless or living in a longterm (including now)? No 11/07/2023 Education Answer Date [...] file Not on file Not on file Last Filed Vital Signs Vital Sign Reading Time Taken Comments Blood Pressure 126/82 10/22/2024 1:58 PM EDT Pulse 74 10/22/2024 1:58 PM EDT Temperature 36.3 C (97.3 F) 10/22/2024 1:58 PM EDT Respiratory Rate 18 10/04/2024 2:01 PM EDT Oxygen Saturation 98% 10/22/2024 1:58 PM EDT Inhaled Oxygen Concentration - - Weight 140 kg (309 lb) 10/22/2024 1:58 PM EDT Height 167.6 cm (5' 6 ) 10/04/2024 2:01 PM EDT Body Mass Index 49.87 10/04/2024 2:01 PM EDT Plan of Treatment Upcoming Encounters Date Type Department Care Team (Late st Contact Info) Description 11/16/2024 11:30 AM EDT Office Visit [facility] [address] [facility] [address] [place] [address] Glory Mccormick, CORK COMPOUNDER-SHEET METAL LAY OUT WORKER [address] [place] [address] [place] [address] Health Maintenance Due Date Last Done Comments Influenza Vaccine (#1) 2024 Procedures Procedure Name Priority Date/Time Associated Diagnosis Comments T4, FREE Routine 10/04/2024 2:24 PM EDT CBC (INCLUDES DIFF/PLT) Routine 10/04/2024 2:24 PM EDT Pedal edema Migraine without aura and without status migrainosus, not intractable COMPREHENSIVE METABOLIC PANEL Routine 10/04/2024 2:24 PM EDT Pedal edema Migraine without aura and without status migrainosus, not intractable TSH W/REFLEX TO FT4 Routine 10/04/2024 2 :24 PM EDT Hypothyroidism, unspecified type from Last 3 Months Results * (ABNORMAL) TSH W/REFLEX TO FT4 (10/04/2024 2:24 PM EDT) TSH W/REFLEX TO FT4 8.20(H) mIU/L [facility] Comment: Reference Range > or = 20 Years 0.40-4.50 Ranges First trimester 0.26-2.66 Second trimester 0.55-2.73 Third trimester 0.43-2.91 10/04/2024 2:24 PM EDT 10/04/2024 2:26 PM EDT Narrative Resulting Agency Comment Performing Organization Information Site ID: QPT Name: [facility] Address: [address] [place] [address], [address] [place] [phone] Director: Wilian Rodriguez MD us Viji Vogt MD LAB BLOOD ORDERABLES Final Resul t [facility] * (ABNORMAL) CBC and differential (10/04/2024 2:24 PM EDT) WHITE BLOOD CELL COUNT 7.2 3.8 - 10.8 Thousand/u L [facility] RED BLOOD CELL COUNT 4.78 3.80 - 5.10 Million/uL [facility] HEMOGLOBIN 11.4(L) 11.7 - 15.5 g/dL [facility] HEMATOCRIT 36.5 35.0 - 45.0 % [facility] MCV 76.4(L) 80.0 - 100.0 fL [facility] MCH 23.8(L) 27.0 - 33.0 pg [facility] MCHC 31.2(L) 32.0 - 36.0 g/dL [facility] Comment: For adults, a slight decrease in the calculated MCHC value (in the range of 30 to 32 g/dL) is most likely not clinically significant; however, it should be interpreted with caution in correlation with other red cell parameters and the patient's clinical condition. RDW 13.9 11.0 - 15.0 % [facility] PLATELET COUNT 237 140 - 400 Thousand/u L [facility] MPV 10.0 7.5 - 12.5 fL [facility] ABSOLUTE NEUTROPHILS 3,982 1,500 - 7,800 cells/uL [facility] ABSOLUTE LYMPHOCYTES 2,700 850 - 3,900 cells/uL [facility] ABSOLUTE MONOCYTES 288 200 - 950 cells/uL [facility] ABSOLUTE EOSINOPHILS 187 15 - 500 cells/uL [facility] ABSOLUTE BASOPHILS 43 0 - 200 cells/uL [facility] NEUTROPHILS 55.3 % [facility] LYMPHOCYTES 37.5 % [facility] MONOCYTES 4.0 % [facility] EOSINOPHILS 2.6 % [facility] BASOPHILS 0.6 % [facility] Blood Venous blood specimen / Unknown 10/04/2024 2:24 PM EDT 10/04/2024 2:26 PM EDT Narrative Resulting Agency Comment Performing Organization Information Site ID: QPT Name: [facility] Address: [address] [place] [address], [address] [place] [phone] Director: Wilian Rodriguez MD Viji Vogt MD LAB BLOOD ORDERABLES Final Resul t [facility] * T4, free (10/04/2024 2:24 PM EDT) Pathologist [facility] T4, FREE 1.3 0.8 - 1.8 ng/dL [facility] 10/04/2024 2:24 PM EDT 10/04/2024 2:26 PM EDT Narrative Resulting Agency Comment Performing Organization Information Site ID: QPT Name: [facility] Address: [address] [place] [address] Director: Wilian Rodriguez MD Viji Vogt MD LAB BLOOD ORDERABLES Final Resul t [facility] * (ABNORMAL) Comprehensive metabolic panel (10/04/2024 2:24 PM EDT) [facility] Glucose 79 65 - 99 mg/dL [facility] Comment: Fasting reference interval BUN 9 7 - 25 mg/dL [facility] Creatinine 0.74 0.50 - 0.96 mg/dL [facility] EGFR 114 > OR = 60 mL/min/1. 73m2 [facility] BUN/CREATININE RATIO SEE NOTE: 6 - 22 (calc) [facility] Comment: Not Reported: BUN and Creatinine are within reference range. Sodium 139 135 - 146 mmol/L [facility] Potassium, Bld 3.9 3.5 - 5.3 mmol/L [facility] Chloride 106 98 - 110 mmol/L [facility] Carbon Dioxide 27 20 - 32 mmol/L [facility] Calcium 8.6 8.6 - 10.2 mg/dL [facility] PROTEIN, TOTAL 5.8(L) 6.1 - 8.1 g/dL [facility] ALBUMIN 3.5(L) 3.6 - 5.1 g/dL [facility] GLOBULIN 2.3 1.9 - 3.7 g/dL (calc) [facility] ALBUMIN/GLOBULIN RATIO 1.5 1.0 - 2.5 (calc) [facility] BILIRUBIN, TOTAL 0.6 0.2 - 1.2 mg/dL [facility] ALKALINE PHOSPHATASE 55 31 - 125 U/L [facility] AST 17 10 - 30 U/L [facility] ALT 21 6 - 29 U/L [facility] Blood Venous blood specimen / Unknown 10/04/2024 2:24 PM EDT 10/04/2024 2:26 PM EDT Narrative Resulting Agency Comment Performing Organization Information Site ID: QPT Name: [facility] Address: [address] [facility], [address] [place] [address] Director: Wilian Rodriguez MD Viji Vgot MD LAB BLOOD ORDERABLES Final Resul t [facility] from Last 3 Months Insurance [facility] [place]ICAID [place] Care Teams Drug Room Clerk Relationship Specialty Start Date End Date Viji Vogt MD [address] [facility] [place] [address] PCP - General Family Medicine 07/12/22 Viji Vogt MD [address] [facility] [place] [address] PCP - [facility] 02/11/24 Glory Mccormick, CORK COMPOUNDER-SHEET METAL LAY OUT WORKER [address] [facility] [address] [place] [address] Nurse Practitioner Psychiatry 02/27/24
--- OUTSIDE RECORDS SUMMARY | 2024-10-22 19:26 | XMS_ITS | Encounter Summary ---
Author Organization [facility] Address [address] [place] [address] Care Team Providers Care Eight Section Blower Name Role Phone Viji Vogt MD Primary Care Provider [phone] Rena Borges SEISMOGRAPH HELPER Unavailable [phone] Bree Bryant RN Unavailable [phone] [place] Abdi REGULATORY AFFAIRS ASSOCIATE Unavailable Viji Vogt MD Unavailable Mariann Loving SEISMOGRAPH HELPER Unavailable Thalia-Glory Acosta CLINICAL DIETETIC TECHNICIAN-AIR DRILL OPERATOR Unavailable Viji Vogt MD Unavailable Encounter Details Date Type Department Care Team (Late st Contact Info) Description 09/12/2022 [facility] [address] [place] [address] Leisa Bowden MA 30 weeks gestation of ([facility]) Social History Tobacco Use Types Packs/Day Years [...] Industry 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 Date 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 No / Unsure 09/11/2022 1:45 PM EDT documented as of this encounter Plan of Treatment Upcoming Encounters Date Type Department Care Team (Late st Contact Info) Description 11/16/2024 11:30 AM EDT Office Visit [facility] [address] [facility] 160 [place] [address] Glory Mccormick, CLINICAL DIETETIC TECHNICIAN-AIR DRILL OPERATOR [address] [facility] 160 [place] [address] documented as of this encounter Visit Diagnoses Diagnosis 30 weeks gestation of ([facility]) documented in this encounter Care Teams Eight Section Blower Relationship Specialty Start Date End Date Viji Vogt MD [address] [place] [address] PCP - General Family Medicine 07/12/22 Rena Borges NP [address] [place] [phone] PCP - [facility] 08/10/22 Viji Vogt MD [address] [place] [address] PCP - [facility] 05/12/23 Mariann Loving NP PCP - [facility] 11/11/2302/09 Viji Vogt MD [address] [place] [address] PCP - [facility] 02/11/24 Bree Bryant, RN [address] [place] [address] Registered Nurse Family Medicine 01/29/23 01/29/23 Geneva Abdi, REGULATORY AFFAIRS ASSOCIATE [address] [place] [address] Regional Marketing Director Family Medicine 01/29/23 02/05/23 Glory Mccormick, CLINICAL DIETETIC TECHNICIAN-AIR DRILL OPERATOR [address] [address] Nurse Practitioner Psychiatry 02/27/24 documented as of this encounter
--- OUTSIDE RECORDS SUMMARY | 2024-10-22 19:27 | XMS_ITS | Encounter Summary ---
Author Organization [facility] Healthcare Address [address] [place] [address] Care Team Providers Care Superintendent Track Name Role Phone Viji Vogt MD Primary Care Provider [phone] Rena Borges DISPLAY MECHANIC Unavailable [phone] Bree Bryant RN Unavailable [phone] [place] Abdi WOMEN NURSE Unavailable Viji Vogt MD Unavailable Mariann Loving DISPLAY MECHANIC Unavailable Thalia-Glory Acosta CENTRAL COMMUNICATIONS SPECIALIST-CONFIDENTIAL INVESTIGATOR Unavailable Viji Vogt MD Unavailable Reason for Visit * Reason Comments Med Refill Encounter Details Date Type Department Care Team (Late st Contact Info) Description 09/25/2022 Refill [facility] Family Medicine [address] [place] [address] Viji Vogt MD [address] [place], [place] [phone] Other acute gastritis without hemorrhage Social History Tobacco Use Types Packs/Day Years [...] Industry 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 Date 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 No / Unsure 09/27/2022 2:29 PM EDT documented as of this encounter Miscellaneous Notes * Telephone Encounter - Viji Vogt MD - 09/25/2022 11:48 AM EDT Approvals with refills documented in this encounter Plan of Treatment Upcoming Encounters Date Type Department Care Team (Late st Contact Info) Description 11/16/2024 11:30 AM EDT Office Visit [facility] [address] [facility] 160 [place] [address] Glory Mccormick, CENTRAL COMMUNICATIONS SPECIALIST-CONFIDENTIAL INVESTIGATOR [address] [facility] 160 [place] [address] documented as of this encounter Visit Diagnoses Diagnosis Other acute gastritis without hemorrhage documented in this encounter Care Teams Superintendent Track Relationship Specialty Start Date End Date Viji Vogt MD [address] [place] [address] PCP - General Family Medicine 07/12/22 Rena Borges NP [address] [place] [address] PCP - [facility] 08/10/22 Viji Vogt MD [address] [place] [address] PCP - [facility] 05/12/23 Mariann Loving NP PCP - [facility] 11/11/2302/09 Viji Vogt MD [address] [place], [place] [phone] PCP - [facility] 02/11/24 Bree Bryant, JOJO [address] [facility] [place], [place] [phone] Registered Nurse Family Medicine 01/29/23 01/29/23 Geneva Abdi, DEE [address] [place] [address] Manager Of Revenue Family Medicine 01/29/23 02/05/23 Glory Mccormick, CENTRAL COMMUNICATIONS SPECIALIST-CONFIDENTIAL INVESTIGATOR [address] [id number] Nurse Practitioner Psychiatry 02/27/24 documented as of this encounter
--- OUTSIDE RECORDS SUMMARY | 2024-10-22 19:27 | XMS_ITS | Encounter Summary ---
Author Organization [facility] Healthcare Address [address] [place] [address] Care Team Providers Care Industrial Tech Instructor Name Role Phone Viji Vogt MD Primary Care Provider [phone] Rena Borges SPINNING FRAME TENDER Unavailable [phone] Bree Bryant RN Unavailable [phone] [place] Abdi SENIOR CARE ASSISTANT Unavailable Viji Vogt MD Unavailable Mariann Loving SPINNING FRAME TENDER Unavailable Thalia-Glory Acosta CHAIR MENDER-BUSINESS MACHINES TEACHER Unavailable Viji Vogt MD Unavailable Reason for Visit * Reason Comments Med Refill Encounter Details Date Type Department Care Team (Late st Contact Info) Description 10/14/2022 Refill [facility] Family Medicine [address] [place] [address] Viji Vogt MD [address] [place], [place] [phone] Other acute gastritis without hemorrhage Social History [...] Industry 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 Date 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 No / Unsure 09/27/2022 2:29 PM EDT documented as of this encounter Miscellaneous Notes * Telephone Encounter - Viji Vogt MD - 10/15/2022 8:30 AM EDT Approvals with refills documented in this encounter Plan of Treatment Upcoming Encounters Date Type Department Care Team (Late st Contact Info) Description 11/16/2024 11:30 AM EDT Office Visit [facility] 112 [facility] 160 [place] [address] Glory Mccormick, CHAIR MENDER-BUSINESS MACHINES TEACHER 112 [facility] 160 [place] [address] documented as of this encounter Visit Diagnoses Diagnosis Other acute gastritis without hemorrhage documented in this encounter Care Teams Industrial Tech Instructor Relationship Specialty Start Date End Date Viji Vogt MD [address] [place] [address] PCP - General Family Medicine 07/12/22 Rena Borges NP [address] [place] [address] PCP - [facility] 08/10/22 Viji Vogt MD [address] [place] [address] PCP - [facility] 05/12/23 Mariann Lovnig NP PCP - [facility] 11/11/2302/09 Viji Vogt MD [address] [place], [place] [phone] PCP - [facility] 02/11/24 Bree Bryant, JOJO [address] [facility] [place], [place] [phone] Registered Nurse Family Medicine 01/29/23 01/29/23 Geneva Abdi, DEE [address] [place] [address] [employer] Intern[employer] Family Medicine 01/29/23 02/05/23 Glory Mccormick, CHAIR MENDER-BUSINESS MACHINES TEACHER [address] [phone] Nurse Practitioner Psychiatry 02/27/24 documented as of this encounter
--- OUTSIDE RECORDS SUMMARY | 2024-10-22 19:27 | XMS_ITS | Encounter Summary ---
Author Organization [facility] Address [address] [place] [address] Care Team Providers Care Cane Packer Name Role Phone Viji Vogt MD Primary Care Provider Glory Mccormick APRN-GROUP THERAPIST Unavailable Viji Vogt MD Unavailable Encounter Details Date Type Department Care Team (Late st Contact Info) Description 05/05/[address] [facility] Family Medicine [address] [place] [address] Viji Vogt MD [address] [place] [address] Social History Tobacco Use Types [...] week 11/07/2023 How often do you attend up health system or adventist services? More than 4 times per year 11/07/2023 Do you belong to any clubs o r organizations such as druze groups, unions, fraternal or athletic groups, or [...] Recorded Patient Health Questionnaire-2 Score 1 04/27/2024 [facility] - Occupational Stress Questionnaire Answer Date Recorded [...] things needed for daily living? No 11/07/2023 [place] Depression Scale Answer Date Recorded [place] Depression Scale Total 20 01/29/2023 The thought [...] were you homeless or living in a care home (including now)? No 11/07/2023 Education Answer Date [...] Office Visit [facility] 112 [facility] 160 [place] [address] Glory Mccormick, MILIEU TECHNICIAN-GROUP THERAPIST 112 [facility] 160 [place] [address] documented as of this encounter Visit Diagnoses Not on filedocumented in this encounter Additional Health Concerns Assessment Noted Time PHQ-9 Depression Total Score: 13 025 3:28 PM EDT documented as of this encounter Care Teams Cane Packer Relationship Specialty Start Date End Date Viji Vogt MD [address] [place] [address] PCP - General Family Medicine 07/12/22 Viji Vogt MD [address] [place] [address] PCP - [facility] 02/11/24 Glory Mccormick APRN-GROUP THERAPIST [address] [place] 160 [place] [address] Nurse Practitioner Psychiatry 02/27/24 documented as of this encounter
--- OUTSIDE RECORDS SUMMARY | 2024-10-22 19:27 | XMS_ITS | Encounter Summary ---
Author Organization [facility] Address [address] [place] [address] Care Team Providers Care Auto Glass Technician Name Role Phone Viji Vogt MD Primary Care Provider [phone] Rena Borges HEADMASTER/MISTRESS Unavailable [phone] Bree Bryant RN Unavailable [phone] [place] Abdi HOME BUILDER Unavailable Viji Vogt MD Unavailable Mariann Loving HEADMASTER/MISTRESS Unavailable Thalia-Glory Acosta DIRECTOR PAID MEDIA-SALES AND LEASING AGENT Unavailable Viji Vogt MD Unavailable Reason for Visit * Reason Comments Med Refill Encounter Details Date Type Department Care Team (Late st Contact Info) Description 08/24/2022 Refill [facility] Family Medicine [address] [place] [address] Viji Vogt MD [address] [place], [place] [id number] Other acute gastritis without hemorrhage Social History [...] Industry 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 Date 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 No / Unsure 08/14/2022 10:38 PM EDT documented as of this encounter Miscellaneous Notes * Telephone Encounter - Macy Peters - 08/27/2022 3:21 PM EDT Pt would like to know what 3 hr glucose results were- Also asked to let you know her last ultrasound at [facility] they advised she was cleared to do further US here. Asking for order for her 30 week US here. * Telephone Encounter - Viji Vogt MD - 08/26/2022 8:42 AM EDT Approvals with refills documented in this encounter Plan of Treatment Upcoming Encounters Date Type Department Care Team (Late st Contact Info) Description 11/16/2024 11:30 AM EDT Office Visit [facility] [address] [facility] 160 [place] [address] Thalia-Glory Acosta, DIRECTOR PAID MEDIA-SALES AND LEASING AGENT 112 [facility] 160 [place] [address] documented as of this encounter Visit Diagnoses Diagnosis Other acute gastritis without hemorrhage documented in this encounter Care Teams Auto Glass Technician Relationship Specialty Start Date End Date Viji Vogt MD [address] [place] [address] PCP - General Family Medicine 07/12/22 Rena Borges NP [address] [place] [address] PCP - [facility] 08/10/22 Viji Vogt MD [address] [place], [place] [address] PCP - [facility] 05/12/23 Mariann Loving HEADMASTER/MISTRESS PCP - [facility] 11/11/2302/09 Viji Vogt MD [address] [facility] [place] [address] [facility] 02/11/24 Bree Bryant, RN [address] [place] [address] Registered Nurse Family Medicine 01/29/23 01/29/23 [place] Abdi, DEE [address] [place] [address] Field Liability Generalist Family Medicine 01/29/23 02/05/23 Glory Mccormick, DIRECTOR PAID MEDIA-SALES AND LEASING AGENT 112 [facility] 160 [place] [address] Nurse Practitioner Psychiatry 02/27/24 documented as of this encounter
--- OUTSIDE RECORDS SUMMARY | 2024-10-22 19:27 | XMS_ITS | Encounter Summary ---
Author Organization [facility] Address [address] [place] [address] Care Team Providers Care Clinical Research Associate Name Role Phone Viji Vogt MD Primary Care Provider [phone] Glory Mccormick APRN-ELECTRIC STOP INSTALLER Unavailable Viji Vogt MD Unavailable Encounter Details Date Type Department Care Team (Late st Contact Info) Description 06/17/2024 Results Follow-Up [facility] OBGYN [address] [place] [address] Leisa Bowden MA THINPREP IMAGING PAP AND HPV DNA REFLEX HPV 16,18 Social History Tobacco Use Types Packs/Day Years [...] often do you attend chur ch or hindu services? More than 4 times per year 11/07/2023 Do you belong to any clubs o r organizations such as rastafarian groups, unions, fraternal or athletic groups, or [...] Recorded Patient Health Questionnaire-2 Score 1 04/27/2024 [facility] - Occupational [...] things needed for daily living? No 11/07/2023 [place] Depression Scale Answer Date Recorded [place] Depression Scale Total 20 01/29/2023 The thought [...] any time in the past 12 m [facility], were you homeless or living in a long-term (including now)? No 11/07/2023 Education Answer Date [...] Visit [facility] 112 [facility] 160 [place] [address] Glory Mccormick, NEWS CAMERA PERSON-ELECTRIC STOP INSTALLER 112 [facility] 160 [place] [address] documented as of this encounter Visit Diagnoses Not on filedocumented in this encounter Additional Health Concerns Assessment Noted Time PHQ-9 Depression Total Score: 13 04/27/ 025 3:28 PM EDT documented as of this encounter Care Teams Clinical Research Associate Relationship Specialty Start Date End Date Viji Vogt MD [address] [facility] [place] [address] PCP - General Family Medicine 07/12/22 Viji Vogt MD [address] [place] [address] PCP - [facility] 02/11/24 Glory Mccormick APRN-ELECTRIC STOP INSTALLER [address] [facility] 160 [place] [address] Nurse Practitioner Psychiatry 02/27/24 documented as of this encounter
--- OUTSIDE RECORDS SUMMARY | 2024-10-22 19:27 | XMS_ITS | Encounter Summary ---
Author Organization [facility] Address [address] [place] [address] Care Team Providers Care Senior Construction Estimator Name Role Phone Viji Vogt MD Primary Care Provider [phone] Rena Borges UNDERWRITING INTERN Unavailable [phone] Bree Bryant RN Unavailable [phone] [place] Abdi ASSISTED LIVING ADMINISTRATOR Unavailable Viji Vogt MD Unavailable Mariann Loving UNDERWRITING INTERN Unavailable Thalia-Glory Acosta VASCULAR SPECIALISTS-VOICE INTERCEPT TECHNICIAN Unavailable Viji Vogt MD Unavailable Reason for Visit * Reason Comments Med Refill Encounter Details Date Type Department Care Team (Late st Contact Info) Description 10/30/2022 Refill [facility] Family Medicine [address] [place] [address] Viji Vogt MD [address] [place], [place] [address] Other specified hypothyroidism Social History Tobacco Use Types Packs/Day Years Used Date Smoking Tobacco: Never Smokeless Tobacco: Never Alcohol Use Standard Drinks/Week Comments Never 0 (1 standard drink = 0.6 oz pur e alcohol) caffeine: pop 2 cans/day Comments No Sex and Gender Information Value Date Recorded Sex Assigned at Female 06/19/2022 12:13 PM EDT Legal Sex Female 6:48 PM EDT Gender Identity Female 06/19/2022 12:13 PM EDT Sexual Orientation Straight 06/19/2022 12 :13 PM EDT Occupation Industry 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 Date 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[employer] Not on file Not on file Not on file documented as of this encounter Miscellaneous Notes * Telephone Encounter - Viji Vogt MD - 10/30/2022 11:05 AM EDT Approvals with refills documented in this encounter Plan of Treatment Upcoming Encounters Date Type Department Care Team (Late st Contact Info) Description 11/16/2024 11:30 AM EDT Office Visit [facility] 112 [facility] 160 [place] [address] Glory Mccormick, VASCULAR SPECIALISTS-VOICE INTERCEPT TECHNICIAN 112 [facility] 160 [place] [address] documented as of this encounter Visit Diagnoses Diagnosis Other specified hypothyroidism documented in this encounter Care Teams Senior Construction Estimator Relationship Specialty Start Date End Date Viji Vogt MD [address] [place] [address] PCP - General Family Medicine 07/12/22 Rena Borges NP [address] [place] [address] PCP - [facility] 08/10/22 Viji Vogt MD [address] [place] [address] PCP - [facility] 05/12/23 Mariann Loving NP PCP - [facility] 11/11/2302/09 Viji Vogt MD 1479 [facility] [place] [facility] [place] [address] PCP - [facility] 02/11/24 Bree Bryant, RN [address] [place], [place] [address] Registered Nurse Family Medicine 01/29/23 01/29/23 [place] Abdi, ASSISTED LIVING ADMINISTRATOR [address] [place] [address] Air Motor Repairer Family Medicine 01/29/23 02/05/23 Glory Mccormick, VASCULAR SPECIALISTS-VOICE INTERCEPT TECHNICIAN 112 [facility] 160 [place] [address] Nurse Practitioner Psychiatry 02/27/24 documented as of this encounter
--- OUTSIDE RECORDS SUMMARY | 2024-10-22 19:27 | XMS_ITS | Encounter Summary ---
Author Organization [facility] Address [address] [place] [address] Care Team Providers Care Test Director Name Role Phone Viji Vogt MD Primary Care Provider [phone] Rena Borges INCIDENT RESPONSE CONSULTANT Unavailable [phone] Bree Bryant RN Unavailable [phone] [place] Abdi DENTAL FLOSS PACKER Unavailable Viji Vogt MD Unavailable Mariann Loving INCIDENT RESPONSE CONSULTANT Unavailable Thalia-Glory Acosta ECHO TECH-DIRECTOR OF EMAIL MARKETING Unavailable Viji Vogt MD Unavailable Encounter Details Date Type Department Care Team (Late st Contact Info) Description 10/24/2022 Abstract [facility] Family Medicine [address] [place] [address] Viji Vogt MD [address] [place] [address] Social History Tobacco Use Types [...] Industry 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 Date 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 Not on [...] Office Visit [facility] 112 [facility] 160 [place] [address] Glory Mccormick, ECHO TECH-DIRECTOR OF EMAIL MARKETING 112 [facility] 160 [place] [address] documented as of this encounter Visit Diagnoses Not on filedocumented in this encounter Care Teams Test Director Relationship Specialty Start Date End Date Viji Vogt MD [address] [place] [address] PCP - General Family Medicine 07/12/22 Rena Borges NP [facility] [place] [address] PCP - [facility] 08/10/22 Viji Vogt MD [address] [place] [address] PCP - [facility] 05/12/23 Mariann Loving NP PCP - [facility] 11/11/2302/09 Viij Vogt MD [address] [place], [place] [address] PCP - [facility] 02/11/24 Bree Bryant, RN [address] [place], [place] [address] Registered Nurse Family Medicine 01/29/23 01/29/23 Geneva Abdi, DEE [address] [place] [address] Cleaner Housekeeping Family Medicine 01/29/23 02/05/23 Glory Mccormick, ECHO TECH-DIRECTOR OF EMAIL MARKETING 112 [facility] 160 [place] [address] Nurse Practitioner Psychiatry 02/27/24 documented as of this encounter
--- OUTSIDE RECORDS SUMMARY | 2024-10-22 19:27 | XMS_ITS | Encounter Summary ---
Author Organization [facility] Healthcare Address [address] [place] [address] Care Team Providers Care Oil Field Caser Name Role Phone Viji Vogt MD Primary Care Provider [phone] Rena Borges DRAWBRIDGE OPERATOR Unavailable [phone] Bree Bryant RN Unavailable [phone] [place] Abdi HEALTHCARE ADMINISTRATIVE ASSISTANT Unavailable Viji Vogt MD Unavailable Mariann Loving DRAWBRIDGE OPERATOR Unavailable Thalia-Glory Acosta SHOP TECH-AUDIO VIDEO TECHNICIAN Unavailable Viji Vogt MD Unavailable Reason for Visit * Reason Comments Med Refill Encounter Details Date Type Department Care Team (Late st Contact Info) Description 01/24/2023 Refill [facility] Family Medicine [address] [place] [address] Viji Vogt MD [address] [place], [place] [address] Other specified hypothyroidism Social History Tobacco Use Types Packs/Day Years Used Date Smoking Tobacco: Never Smokeless Tobacco: Never Alcohol Use Standard Drinks/Week Comments Never 0 (1 standard drink = 0.6 oz pur e alcohol) caffeine: pop 2 cans/day [place] Depression Scale Answer Date Recorded [place] Depression Scale Total 5 12/09/2022 The thought of harming myself has occurred to me . 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 documented in this encounter Plan of Treatment Upcoming Encounters Date Type Department Care Team (Late st Contact Info) Description 11/16/2024 11:30 AM EDT Office Visit [facility] 112 [facility] 160 [place] [address] Glory Mccormick APRN-AUDIO VIDEO TECHNICIAN 112 [facility] 160 [place] [address] documented as of this encounter Visit Diagnoses Diagnosis Other specified hypothyroidism documented in this encounter Care Teams Oil Field Caser Relationship Specialty Start Date End Date Viji Vogt MD [address] [place] [address] PCP - General Family Medicine 07/12/22 Rena Borges NP [address] [place] [address] PCP - [facility] 08/10/22 Viji Vogt MD [address] [place] [address] PCP - [facility] 05/12/23 Mariann Loving NP PCP - [facility] 11/11/2302/09 Viji Vogt MD [address] [place], [place] [address] PCP - [facility] 02/11/24 Bree Bryant, JOJO [address] [facility] [place], [place] [address] Registered Nurse Family Medicine 01/29/23 01/29/23 Geneva Abdi, HEALTHCARE ADMINISTRATIVE ASSISTANT [address] [place] [address] Steam Gigger Family Medicine 01/29/23 02/05/23 Glory Mccormick, SHOP TECH-AUDIO VIDEO TECHNICIAN [address] [facility] 160 [place] [address] Nurse Practitioner Psychiatry 02/27/24 documented as of this encounter
--- OUTSIDE RECORDS SUMMARY | 2024-10-22 19:27 | XMS_ITS | Encounter Summary ---
Author Organization [facility] Address [address] [place] [address] Care Team Providers Care Humanities Professor Name Role Phone Viji Vogt MD Primary Care Provider [phone] Rena Borges SUPERVISOR FIBERGLASS BOAT ASSEMBLY Unavailable [phone] Viji Vogt MD Unavailable Mariann Loving SUPERVISOR FIBERGLASS BOAT ASSEMBLY Unavailable Glory Mccormick COMPONENT LAB TECH-TABLE WORKER Unavailable Viji Vogt MD Unavailable Reason for Visit * Reason Comments Med Refill Encounter Details Date Type Department Care Team (Late st Contact Info) Description 03/23/2023 Refill [facility] Family Medicine [address] [place] [address] Viji Vogt MD [address] [place] [address] Other specified hypothyroidism Social History Tobacco Use Types Packs/Day Years Used Date Smoking Tobacco: Never Smokeless Tobacco: Never Alcohol Use Standard Drinks/Week Comments Never 0 (1 standard drink = 0.6 oz pur e alcohol) caffeine: pop 2 cans/day [place] Depression Scale Answer Date Recorded [place] Depression Scale Total 20 01/29/2023 The thought of harming myself has occurred to me . 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 documented in this encounter Plan of Treatment Upcoming Encounters Date Type Department Care Team (Late st Contact Info) Description 11/16/2024 11:30 AM EDT Office Visit [facility] [address] [place] 160 [place] [address] Glory Mccormick, COMPONENT LAB TECH-TABLE WORKER [address] [facility] 160 [place] [address] documented as of this encounter Visit Diagnoses Diagnosis Other specified hypothyroidism documented in this encounter Care Teams Humanities Professor Relationship Specialty Start Date End Date Viji Vogt MD [address] [place] [address] PCP - General Family Medicine 07/12/22 Rena Borges NP [address] [place] [address] PCP - [facility] 08/10/22 Viji Vogt MD [address] [place] [address] PCP - [facility] 05/12/23 Mariann Loving NP PCP - [facility] 11/11/2302/09 Viji Vogt MD [address] [place] [address] PCP - [facility] 02/11/24 Glory Mccormick, COMPONENT LAB TECH-TABLE WORKER [address] [facility] 160 [place] [address] Nurse Practitioner Psychiatry 02/27/24 documented as of this encounter
--- OUTSIDE RECORDS SUMMARY | 2024-10-22 19:27 | XMS_ITS | Encounter Summary ---
Author Organization [facility] Address [address] [place] [address] Care Team Providers Care Ground Layer Name Role Phone Viji Vogt MD Primary Care Provider [phone] Rena Borges ARC WELDING MACHINE OPERATOR Unavailable [phone] Bree Bryant RN Unavailable [phone] [place] Abdi HOSPITALITY SPECIALIST Unavailable Viji Vogt MD Unavailable Mariann Loving ARC WELDING MACHINE OPERATOR Unavailable Thalia-Glory Acosta MANAGER BUSINESS INTELLIGENCE-CUPOLA OPERATOR Unavailable Viji Vogt MD Unavailable Encounter Details Date Type Department Care Team (Late st Contact Info) Description 10/24/2022 Abstract [facility] Family Medicine [address] [place] [address] Viji Vogt MD [address] [place] [address] Social History Tobacco Use Types [...] Industry 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 Date 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 Not on [...] Office Visit [facility] 112 [facility] 160 [place] [address] Glory Mccormick, MANAGER BUSINESS INTELLIGENCE-CUPOLA OPERATOR 112 [facility] 160 [place] [address] documented as of this encounter Visit Diagnoses Not on filedocumented in this encounter Care Teams Ground Layer Relationship Specialty Start Date End Date Viji Vogt MD [address] [place] [address] PCP - General Family Medicine 07/12/22 Rena Borges NP [facility] [place] [address] PCP - [facility] 08/10/22 Viji Vogt MD [address] [place] [address] PCP - [facility] 05/12/23 Mariann Loving NP PCP - [facility] 11/11/2302/09 Viji Vogt MD [address] [place], [place] [address] PCP - [facility] 02/11/24 Bree Bryant, RN [address] [place], [place] [address] Registered Nurse Family Medicine 01/29/23 01/29/23 Geneva Abdi, DEE [address] [place] [address] Asset Protection Specialist Family Medicine 01/29/23 02/05/23 Glory Mccormick, MANAGER BUSINESS INTELLIGENCE-CUPOLA OPERATOR 112 [facility] 160 [place] [address] Nurse Practitioner Psychiatry 02/27/24 documented as of this encounter
--- OUTSIDE RECORDS SUMMARY | 2024-10-22 19:27 | XMS_ITS | Encounter Summary ---
Author Organization [facility] Address [address] [place] [address] Care Team Providers Care Vocational Psychologist Name Role Phone Viji Vogt MD Primary Care Provider [phone] Rena Borges ELECTION JUDGE Unavailable [phone] Bree Bryant RN Unavailable [phone] [place] Abdi STEEL ESTIMATOR Unavailable Viji Vogt MD Unavailable Mariann Loving ELECTION JUDGE Unavailable Thalia-Glory Acosta PIG CONVEYOR OPERATOR-JUNK DEALER Unavailable Viji Vogt MD Unavailable Encounter Details Date Type Department Care Team (Late st Contact Info) Description 10/24/2022 Abstract [facility] Family Medicine [address] [place] [address] Viji Vogt MD [address] [place] [address] Social History Tobacco Use Types [...] Industry 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 Date 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 on 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 Not on [...] Office Visit [facility] 112 [facility] 160 [place] [address] Glory Mccormick, PIG CONVEYOR OPERATOR-JUNK DEALER 112 [facility] 160 [place] [address] documented as of this encounter Visit Diagnoses Not on filedocumented in this encounter Care Teams Vocational Psychologist Relationship Specialty Start Date End Date Viji Vogt MD [address] [place] [address] PCP - General Family Medicine 07/12/22 Rena Borges NP [facility] [place] [address] PCP - [facility] 08/10/22 Viji Vogt MD [address] [place] [address] PCP - [facility] 05/12/23 Mariann Loving NP PCP - [facility] 11/11/2302/09 Viji Vogt MD [address] [place], [place] [address] PCP - [facility] 02/11/24 Bree Bryant, RN [address] [place], [place] [address] Registered Nurse Family Medicine 01/29/23 01/29/23 Geneva Abdi, DEE [address] [place] [address] Disc Inspector Family Medicine 01/29/23 02/05/23 Glory Mccormick, PIG CONVEYOR OPERATOR-JUNK DEALER 112 [facility] 160 [place] [address] Nurse Practitioner Psychiatry 02/27/24 documented as of this encounter
== END 2024-10-22 20:14 | disposition left against medical advice (07) ==
LOC: ER 19:25
PROVIDERS: Emergency Provider Internal Medicine; PCP Family Medicine
DX: Z53.21 Procedure and treatment not carried out due to patient leaving prior to being seen by health care provider (principal)